=== PATIENT | female | born 1980 | race Caucasian/White ===

== ENCOUNTER → 2017-08-13 | Outpatient (CLI) | payer OTHER ==
[~2017-08-13] MED LIST: EPIN.3I IM; IBUP800 PO; OXYACE5T PO; PRED20 PO
[2017-08-15 15:17] LABS: HPV Genotype 16 Not Detected (NOTDET); HPV Genotype 18 Not Detected (NOTDET)
[2017-08-20 14:53] LABS: HPV High Risk Other Not Detected (NOTDET)
== END ==
LOC: LAB 17:05
PROVIDERS: Nurse Practitioner Women's Health
DX: Z12.4 Encounter for screening for malignant neoplasm of cervix (principal); Z91.89 Other specified personal risk factors, not elsewhere classified
CPT/HCPCS: 87624; G0123